=== PATIENT | female | born 1975 | race Caucasian/White ===

== ENCOUNTER → 2018-05-03 | Outpatient (REF) ==
[2018-05-03 17:11] LABS: RUBELLA IgG QUALITATIVE IMMUNE (IMMUNE)
== END ==
LOC: M LAB 14:57
DX: Z02.1 Encounter for pre-employment examination (principal)

== ENCOUNTER → 2022-03-13 | Outpatient (REF) ==
[~2022-03-13] MED LIST: CENTRUM VITAMIN PO; MOTRIN PO; OMEPPOW18 PO; VICODIN PO
[2022-03-13 13:30] LABS: RSV AMPLIFICATION NEGATIVE (NEGATIVE)
== END ==
LOC: M EMP 12:23
PROVIDERS: ATTEND Family Medicine
DX: Z11.52 Encounter for screening for COVID-19 (principal)

== ENCOUNTER → 2023-12-30 | Outpatient (REF) | LOC: M EMP 08:01 | PROVIDERS: ATTEND Family Medicine | DX: Z11.52 Encounter for screening for COVID-19 (principal) ==

== ENCOUNTER 2024-08-09 06:50 | Day surgery (SDC) | payer OTHER ==
[~2024-08-09] VITALS: Ht 162.6 cm; Wt 89.7 kg
[~2024-08-09 06:50] MED LIST changes: +IBUP-1022 PO; +MULTTAB61 PO
[2024-08-09] MEDS ORDERED: LR 1,000 ML IV SCH ×2 (07:30→09:35)
[2024-08-09] MEDS ORDERED: propofoL 200 MG/20 ML VIAL As Ordered ONE (07:58)
[2024-08-09] MEDS ORDERED: MIDAZOLAM INJ 2MG/2ML VIAL As Ordered ONE (07:58)
[2024-08-09] MEDS ORDERED: ROCURONIUM BROMIDE 50MG/5ML VIAL As Ordered ONE (07:58)
[2024-08-09] MEDS ORDERED: fentaNYL 100 MCG/2 ML INJECTION As Ordered ONE (07:58)
[2024-08-09] MEDS ORDERED: LIDOCAINE 2% 100MG/5ML SDV (FOR ANES.) As Ordered ONE (07:58)
[2024-08-09] MEDS ORDERED: LIDOCAINE 2% JELLY 6ML SYRINGE As Ordered ONE (07:59)
[2024-08-09] MEDS: PHENYLEPHRINE 0.5% NASAL SPRAY 15 ML As Ordered ONE (08:25)
[2024-08-09] MEDS ORDERED: ONDANSETRON 4MG 2ML VIAL As Ordered ONE (08:44)
[2024-08-09] MEDS: AMPICILLIN SOD/SULBACTAM SOD 3 GM in D5W MINI-BAG PLUS 100 ML IV ONE (08:47)
[2024-08-09] MEDS ORDERED: ACETAMINOPHEN 1000MG 100ML IV BAG As Ordered ONE (08:49)
[2024-08-09] MEDS: LIDOCAINE 2% W/ EPINEPHRINE 1.7 ML DENTAL INJ As Ordered ONE (09:01)
[2024-08-09] MEDS ORDERED: PHENYLephrine 500MCG 5ML (100MCG/ML) SYRINGE As Ordered ONE (09:11)
[2024-08-09] MEDS ORDERED: ONDANSETRON 4MG 2ML VIAL IV PRN (09:35)
[2024-08-09] MEDS ORDERED: oxyCODONE 5MG TAB PO PRN (09:35)
[2024-08-09] MEDS ORDERED: fentaNYL 100 MCG/2 ML INJECTION IV PRN (09:35)
[2024-08-09] MEDS ORDERED: HYDROMORPHONE HCL 0.5 MG/ 0.5 ML SYRINGE IV PRN (09:35)
[2024-08-09] MEDS ORDERED: PROMETHAZINE 25MG/ML 1ML VIAL As Ordered ONE (09:45)
[2024-08-09 11:18] VITALS: BP 137/73; TEMP 97.9; O2SAT 95
== END 2024-08-09 11:31 | disposition home or self-care (01) ==
LOC: M SDC 06:50
PROVIDERS: ATTEND Dentist
DX: K02.9 Dental caries, unspecified (principal); K21.9 Gastro-esophageal reflux disease without esophagitis
CPT/HCPCS: 88300; C9290; D7140; D7210; D7310; D9223; J0131; J0295; J1100; J2250; J2371; J2405; J2550; J3010